=== PATIENT | male | born 1955 | race Hispanic/Latino ===

== ENCOUNTER 2017-06-08 09:23 | Emergency (ER) | payer SELFPAY ==
[2017-06-08] MEDS ORDERED: SULFAMETHOX-TMP DS 800/160 TAB ONE (10:34)
[2017-06-08] MEDS ORDERED: CEPHALEXIN 500 MG CAPSULE ONE (10:34)
== END 2017-06-08 10:58 | disposition home or self-care (01) ==
LOC: EDH 09:23
DX: L03.031 Cellulitis of right toe (principal); I10 Essential (primary) hypertension; E11.9 Type 2 diabetes mellitus without complications; E78.00 Pure hypercholesterolemia, unspecified

== ENCOUNTER 2017-07-04 14:45 | Inpatient (IN) | payer OTHER ==
[~2017-07-04] VITALS: Ht 162.6 cm; Wt 103.2 kg
[2017-07-04 15:42] LABS: BASOPHILS % (AUTO) 0.7 % (0.0-5.0); EOSINOPHILS % (AUTO) 2.9 % (0.0-8.0); HEMATOCRIT 39.1 % (42-54); LYMPHOCYTES % (AUTO) 21.5 % (21.0-51.0); MEAN CORPUSCULAR HEMOGLOBIN 33.2 pg (27.0-33.0); MEAN CORPUSCULAR HGB CONC 35.6 g/dL (32.0-36.0); MEAN CORPUSCULAR VOLUME 93.4 fL (79-99); MONOCYTES % (AUTO) 9.8 % (3.0-13.0); NEUTROPHILS % (AUTO) 65.1 % (40.0-77.0); NUCLEATED RED BLOOD CELLS 0.1 % (0.0-0.19); PLATELET COUNT (AUTO) 254 K/uL (130-400); RED BLOOD CELL COUNT(AUTO) 4.19 MIL/uL (4.50-6.20); RED CELL DISTRIBUTION WIDTH 13.2 % (11.0-15.5); WHITE BLOOD COUNT (AUTO) 7.5 K/uL (4.8-10.8)
[2017-07-04 15:50] LABS: CREATININE 1.3 mg/dL (0.5-1.5); POTASSIUM 4.6 mmol/L (3.5-5.1)
[2017-07-04 15:54] LABS: ALBUMIN 3.4 g/dL (3.5-5.0); BILIRUBIN,TOTAL 0.3 mg/dL (0.2-1.0); TOTAL PROTEIN, SERUM 7.5 g/dL (6.0-8.3)
[2017-07-04] MEDS ORDERED: ZOSYN 3.375GM+NS 50ML 50 ML IV SCH (16:45)
[2017-07-04 16:50] LABS: ERYTHROCYTE SEDIMENTATION RATE 38 MM/HR (0-15)
[2017-07-04] MEDS ORDERED: ZOSYN 3.375GM+NS 50ML 50 ML IV ONE (17:24)
[2017-07-04] MEDS ORDERED: ASPIRIN 325 MG TABLET ONE (18:36)
[2017-07-04] MEDS ORDERED: VANCOMYCIN 1GM+NS 250ML 250 ML IV ONE (18:36)
[2017-07-05 00:25] VITALS: BP 134/69
[2017-07-05] MEDS ORDERED: GLIP5TAB11 PO (01:29)
[2017-07-05] MEDS ORDERED: CLOP75TA32 PO (01:29)
[2017-07-05] MEDS ORDERED: PRAV40TA3 PO (01:29)
[2017-07-05] MEDS ORDERED: MUPI22O TP (01:29)
[2017-07-05] MEDS ORDERED: LISI-613 PO (01:29)
[2017-07-05] MEDS ORDERED: GLUCAGON 1MG KIT 1 MG ML IM PRN (02:00)
[2017-07-05] MEDS ORDERED: DIPHENHYDRAMINE HCL 25 MG CAPSULE PO PRN (02:00)
[2017-07-05] MEDS ORDERED: VANCOMYCIN PROTOCOL PER PHARMACY IV SCH (02:00)
[2017-07-05] MEDS ORDERED: GUAIFENESIN-DM 200/20 MG 10 ML PO PRN (02:00)
[2017-07-05] MEDS ORDERED: LACTULOSE 20 GM/30 ML UDCUP PO PRN (02:00)
[2017-07-05] MEDS ORDERED: DEXTROSE 50%-WATER 50 ML DISP.SYRIN IV PRN (02:00)
[2017-07-05] MEDS ORDERED: MAG HYDROX/AL HYDROX/SIMETH ES 30 ML SUSP UDCUP PO PRN (02:00)
[2017-07-05] MEDS ORDERED: CLONIDINE HCL 0.1 MG TABLET PO PRN (02:00)
[2017-07-05] MEDS ORDERED: ACETAMINOPHEN 325 MG TAB PO PRN (02:00)
[2017-07-05] MEDS ORDERED: ZOLPIDEM TARTRATE 5 MG TAB PO PRN (02:00)
[2017-07-05] MEDS ORDERED: ONDANSETRON HCL 4 MG/2 ML VIAL IVP PRN (02:00)
[2017-07-05] MEDS: ZOSYN 3.375GM+NS 50ML 50 ML IV SCH ×3 (02:34→20:37)
[2017-07-05 04:12] VITALS: BP 119/64
[2017-07-05 05:56] LABS: BASOPHILS % (AUTO) 0.8 % (0.0-5.0); EOSINOPHILS % (AUTO) 3.2 % (0.0-8.0); HEMATOCRIT 39.8 % (42-54); LYMPHOCYTES % (AUTO) 20.7 % (21.0-51.0); MEAN CORPUSCULAR HEMOGLOBIN 32.7 pg (27.0-33.0); MEAN CORPUSCULAR HGB CONC 34.6 g/dL (32.0-36.0); MEAN CORPUSCULAR VOLUME 94.5 fL (79-99); MONOCYTES % (AUTO) 10.6 % (3.0-13.0); NEUTROPHILS % (AUTO) 64.7 % (40.0-77.0); PLATELET COUNT (AUTO) 208 K/uL (130-400); RED BLOOD CELL COUNT(AUTO) 4.22 MIL/uL (4.50-6.20); RED CELL DISTRIBUTION WIDTH 13.1 % (11.0-15.5); WHITE BLOOD COUNT (AUTO) 7.8 K/uL (4.8-10.8)
[2017-07-05 06:22] LABS: ALBUMIN 3.2 g/dL (3.5-5.0); BILIRUBIN,TOTAL 0.5 mg/dL (0.2-1.0); POTASSIUM 4.3 mmol/L (3.5-5.1); TOTAL PROTEIN, SERUM 6.9 g/dL (6.0-8.3)
[2017-07-05] MEDS ORDERED: COMPOUND IV REFRIGERATED 1 EACH IVSOLN MISC PRN (06:30)
[2017-07-05] MEDS: INSULIN R PO SS1 SQ SCH ×4 (06:36→20:57)
[2017-07-05] MEDS: FAMOTIDINE 20MG TAB 20 MG TAB PO SCH ×2 (08:43→20:37)
[2017-07-05] MEDS: ASPIRIN 325MG EC TAB 325 MG TABLET.DR PO SCH (08:43)
[2017-07-05] MEDS: VANCOMYCIN 1.5 GM in SODIUM CHLORIDE 0.9% 250 ML IV SCH ×2 (08:45→22:49)
[2017-07-05 09:34] VITALS: BP 108/56
[2017-07-05 12:17] VITALS: BP 128/66
[2017-07-05 16:00] VITALS: BP 115/72
[2017-07-05 20:00] VITALS: BP 122/60
[2017-07-06] VITALS (7 sets, daily range): BP systolic 109–126; BP diastolic 64–84
[2017-07-06] MEDS: ZOSYN 3.375GM+NS 50ML 50 ML IV SCH ×3 (03:51→18:44)
[2017-07-06] MEDS: INSULIN R PO SS1 SQ SCH ×4 (06:12→21:00)
[2017-07-06] MEDS: FAMOTIDINE 20MG TAB 20 MG TAB PO SCH ×2 (10:12→20:45)
[2017-07-06] MEDS: VANCOMYCIN 1.5 GM in SODIUM CHLORIDE 0.9% 250 ML IV SCH ×2 (10:12→22:40)
[2017-07-06] MEDS: ASPIRIN 325MG EC TAB 325 MG TABLET.DR PO SCH (10:12)
[2017-07-07] VITALS (23 sets, daily range): BP systolic 103–135; BP diastolic 53–83
[2017-07-07] MEDS: ZOSYN 3.375GM+NS 50ML 50 ML IV SCH ×3 (02:23→17:42)
[2017-07-07 05:49] LABS: HEMATOCRIT 39.2 % (42-54); MEAN CORPUSCULAR HEMOGLOBIN 33.2 pg (27.0-33.0); MEAN CORPUSCULAR HGB CONC 35.6 g/dL (32.0-36.0); MEAN CORPUSCULAR VOLUME 93.4 fL (79-99); NUCLEATED RED BLOOD CELLS 0.1 % (0.0-0.19); PLATELET COUNT (AUTO) 215 K/uL (130-400); RED CELL DISTRIBUTION WIDTH 13.3 % (11.0-15.5); WHITE BLOOD COUNT (AUTO) 7.4 K/uL (4.8-10.8)
[2017-07-07 05:57] LABS: INR 1.07 (0.85-1.15); PARTIAL THROMBOPLASTIN TIME 25.4 SEC (26.3-35.5); PROTHROMBIN TIME 11.2 SEC (9.6-11.6)
[2017-07-07 06:04] LABS: POTASSIUM 4.2 mmol/L (3.5-5.1)
[2017-07-07] MEDS: INSULIN R PO SS1 SQ SCH ×4 (06:05→21:29)
[2017-07-07] MEDS: VANCOMYCIN 1.5 GM in SODIUM CHLORIDE 0.9% 250 ML IV SCH ×2 (07:55→21:51)
[2017-07-07] MEDS ORDERED: ISOVUE-300 100 ML VIAL IV ONE (08:11)
[2017-07-07] MEDS ORDERED: HEPARIN SODIUM 1000UNIT/ML 10ML VIAL ONE ×2 (08:11→13:15)
[2017-07-07] MEDS ORDERED: NITROGLYCERIN 5 MG/ML 10 ML VIAL IV ONE (08:11)
[2017-07-07] MEDS ORDERED: LIDOCAINE HCL 2% 20ML ONE (08:11)
[2017-07-07] MEDS: FAMOTIDINE 20MG TAB 20 MG TAB PO SCH ×2 (09:00→21:32)
[2017-07-07] MEDS: ASPIRIN 325MG EC TAB 325 MG TABLET.DR PO SCH (09:00)
[2017-07-07] MEDS ORDERED: SODIUM CHLORIDE 0.9% 1000ML 1,000 ML IV SCH (09:55)
[2017-07-07] MEDS ORDERED: DEXTROSE 50%-WATER 50 ML DISP.SYRIN IV PRN (10:00)
[2017-07-07] MEDS ORDERED: GLUCAGON 1MG KIT 1 MG ML IM PRN (10:00)
[2017-07-07] MEDS ORDERED: CEFUROXIME 1.5GM+NS 100ML 100 ML IV SCH (10:15)
[2017-07-07] MEDS ORDERED: CEFUROXIME SODIUM 1.5 GM VIAL IVP SCH (10:45)
[2017-07-07 11:15] LABS: BASOPHILS % (AUTO) 0.6 % (0.0-5.0); EOSINOPHILS % (AUTO) 1.7 % (0.0-8.0); HEMATOCRIT 39.7 % (42-54); LYMPHOCYTES % (AUTO) 16.1 % (21.0-51.0); MEAN CORPUSCULAR HEMOGLOBIN 32.9 pg (27.0-33.0); MEAN CORPUSCULAR HGB CONC 34.9 g/dL (32.0-36.0); MEAN CORPUSCULAR VOLUME 94.4 fL (79-99); NEUTROPHILS % (AUTO) 71.6 % (40.0-77.0); PLATELET COUNT (AUTO) 193 K/uL (130-400); RED CELL DISTRIBUTION WIDTH 13.1 % (11.0-15.5)
[2017-07-07 11:32] LABS: INR 1.08 (0.85-1.15); PARTIAL THROMBOPLASTIN TIME 25.2 SEC (26.3-35.5); PROTHROMBIN TIME 11.3 SEC (9.6-11.6)
[2017-07-07 12:17] LABS: POTASSIUM 4.6 mmol/L (3.5-5.1)
[2017-07-07] MEDS: SODIUM CHLORIDE 0.9% 1000ML 1,000 ML IV SCH ×2 (12:42→15:00)
[2017-07-07] MEDS ORDERED: PROPOFOL 1000 MG/100 ML 0 ML IV ONE ×2 (12:47→12:48)
[2017-07-07] MEDS ORDERED: MIDAZOLAM HCL 1 MG/ML 2ML VIAL ONE (12:47)
[2017-07-07] MEDS ORDERED: LIDOCAINE HCL 1% 10 ML VIAL ONE (12:47)
[2017-07-07] MEDS ORDERED: FENTANYL CITRATE PF 50 MCG/1 ML 2ML VIAL ONE (12:47)
[2017-07-07] MEDS ORDERED: PROPOFOL 10 MG/ML 20ML VIAL IV ONE (12:49)
[2017-07-07] MEDS ORDERED: THROMBIN-JMI 5000 UNIT/VIAL TP ONE (12:52)
[2017-07-07] MEDS ORDERED: OCTYL 2-CYANOACRYLATE 1 EACH TP ONE (13:15)
[2017-07-07] MEDS ORDERED: BACITRACIN 50,000 UNIT VIAL ONE (13:15)
[2017-07-07] MEDS ORDERED: ACETAMINOPHEN 325 MG TAB PO PRN (14:30)
[2017-07-07] MEDS ORDERED: TRAMADOL HCL 50 MG TABLET PO PRN (14:30)
[2017-07-07] MEDS ORDERED: DEXTROSE 5 %-0.45 % NACL 1,000 ML IV SCH (14:30)
[2017-07-07] MEDS ORDERED: MAGNESIUM HYDROXIDE 30 ML/UDCUP PO PRN (14:30)
[2017-07-07] MEDS ORDERED: NEOSTIGMINE 5MG/5ML SYR IV ONE (14:53)
[2017-07-07] MEDS ORDERED: GLYCOPYRROLATE 0.2 MG/ML 5 ML VIAL ONE (14:53)
[2017-07-07] MEDS: HYDROCODONE/ACETAMINOPHEN 5/325 MG TAB PO PRN (17:42)
[2017-07-08] VITALS (15 sets, daily range): BP systolic 101–127; BP diastolic 35–64
[2017-07-08] MEDS: HYDROCODONE/ACETAMINOPHEN 5/325 MG TAB PO PRN (02:25)
[2017-07-08] MEDS: ZOSYN 3.375GM+NS 50ML 50 ML IV SCH ×3 (02:25→18:26)
[2017-07-08 04:13] LABS: ALBUMIN 2.9 g/dL (3.5-5.0); BILIRUBIN,TOTAL 0.5 mg/dL (0.2-1.0); CREATININE 1.1 mg/dL (0.5-1.5); POTASSIUM 4.5 mmol/L (3.5-5.1); TOTAL PROTEIN, SERUM 6.4 g/dL (6.0-8.3)
[2017-07-08] MEDS: INSULIN R PO SS1 SQ SCH ×5 (06:19→20:51)
[2017-07-08] MEDS: FAMOTIDINE 20MG TAB 20 MG TAB PO SCH ×2 (10:05→20:51)
[2017-07-08] MEDS: ASPIRIN 325MG EC TAB 325 MG TABLET.DR PO SCH (10:05)
[2017-07-08] MEDS: VANCOMYCIN 1.5 GM in SODIUM CHLORIDE 0.9% 250 ML IV SCH ×2 (11:56→20:51)
[2017-07-08] MEDS ORDERED: LIDOCAINE HCL 1% 20 ML VIAL ONE (21:18)
[2017-07-08] MEDS ORDERED: BUPIVACAINE/PF 0.5% 30ML VIAL ONE (21:18)
[2017-07-08] MEDS ORDERED: MIDAZOLAM HCL 1 MG/ML 2ML VIAL ONE (21:35)
[2017-07-08] MEDS ORDERED: PROPOFOL 10 MG/ML 20ML VIAL IV ONE (21:36)
[2017-07-08] MEDS ORDERED: FENTANYL CITRATE PF 50 MCG/1 ML 2ML VIAL ONE (21:36)
[2017-07-09] VITALS (12 sets, daily range): BP systolic 95–129; BP diastolic 37–65
[2017-07-09] MEDS: ZOSYN 3.375GM+NS 50ML 50 ML IV SCH ×3 (02:28→18:01)
[2017-07-09] MEDS ORDERED: MORPHINE SULFATE 2 MG/ML 1ML SYG IVP PRN (04:00)
[2017-07-09] MEDS ORDERED: ONDANSETRON HCL MDV 20ML 2 MG/ML VIAL IVP PRN (04:00)
[2017-07-09] MEDS: INSULIN R PO SS1 SQ SCH ×4 (06:03→20:38)
[2017-07-09] MEDS: FAMOTIDINE 20MG TAB 20 MG TAB PO SCH ×2 (09:51→20:39)
[2017-07-09] MEDS: ASPIRIN 325MG EC TAB 325 MG TABLET.DR PO SCH (09:51)
[2017-07-09] MEDS: VANCOMYCIN 1.5 GM in SODIUM CHLORIDE 0.9% 250 ML IV SCH ×2 (10:14→20:40)
[2017-07-09] MEDS: FUROSEMIDE 20 MG TABLET PO SCH (13:35)
[2017-07-09] MEDS: HYDROCODONE/ACETAMINOPHEN 5/325 MG TAB PO PRN ×2 (13:42→20:39)
[2017-07-10] MEDS: ZOSYN 3.375GM+NS 50ML 50 ML IV SCH ×2 (02:08→09:53)
[2017-07-10 03:22] VITALS: BP 117/56
[2017-07-10] MEDS: INSULIN R PO SS1 SQ SCH ×4 (05:31→21:32)
[2017-07-10] MEDS: HYDROCODONE/ACETAMINOPHEN 5/325 MG TAB PO PRN ×3 (05:56→18:20)
[2017-07-10 07:11] VITALS: BP 118/57
[2017-07-10] MEDS: FAMOTIDINE 20MG TAB 20 MG TAB PO SCH ×2 (07:35→21:33)
[2017-07-10] MEDS: ASPIRIN 325MG EC TAB 325 MG TABLET.DR PO SCH (07:35)
[2017-07-10] MEDS: FUROSEMIDE 20 MG TABLET PO SCH (07:36)
[2017-07-10] MEDS: VANCOMYCIN 1.5 GM in SODIUM CHLORIDE 0.9% 250 ML IV SCH (07:36)
[2017-07-10 11:19] VITALS: BP 111/64
[2017-07-10 16:19] VITALS: BP 99/59
[2017-07-10 19:04] VITALS: BP 105/68
[2017-07-10 23:11] VITALS: BP 97/58
[2017-07-11 03:24] VITALS: BP 111/62
[2017-07-11] MEDS: HYDROCODONE/ACETAMINOPHEN 5/325 MG TAB PO PRN ×3 (05:24→22:06)
[2017-07-11] MEDS: INSULIN R PO SS1 SQ SCH ×4 (06:20→21:00)
[2017-07-11 07:44] VITALS: BP 105/64
[2017-07-11] MEDS: ASPIRIN 325MG EC TAB 325 MG TABLET.DR PO SCH (09:55)
[2017-07-11] MEDS: FAMOTIDINE 20MG TAB 20 MG TAB PO SCH ×2 (09:55→20:21)
[2017-07-11] MEDS: FUROSEMIDE 20 MG TABLET PO SCH (09:55)
[2017-07-11 10:58] VITALS: BP 111/67
[2017-07-11 16:18] VITALS: BP 115/44
[2017-07-11 19:35] VITALS: BP 122/62
[2017-07-11] MEDS ORDERED: ATORVASTATIN CALCIUM 40 MG TABLET PO SCH (21:00)
[2017-07-11 23:22] VITALS: BP 123/64
[2017-07-12 03:35] VITALS: BP 129/69
[2017-07-12] MEDS: INSULIN R PO SS1 SQ SCH ×2 (05:37→11:24)
[2017-07-12 07:37] VITALS: BP 106/58
[2017-07-12] MEDS: FAMOTIDINE 20MG TAB 20 MG TAB PO SCH (09:42)
[2017-07-12] MEDS: ASPIRIN 325MG EC TAB 325 MG TABLET.DR PO SCH (09:42)
[2017-07-12] MEDS: FUROSEMIDE 20 MG TABLET PO SCH (09:42)
[2017-07-12 11:18] VITALS: BP 118/72
== END 2017-07-12 14:00 | disposition home or self-care (01) | DRG 240 ==
LOC: EDH 14:45 → EDHIP 14:46 → 4CH 21:51 → 2DH 07-07 16:38
PROVIDERS: ADMIT Internal Medicine; ATTEND Internal Medicine
PROC: B41D1ZZ Fluoroscopy of Aorta and Bilateral Lower Extremity Arteries using Low Osmolar Contrast (ICD-10-PCS; 2017-07-07)
PROC: 041K09Q Bypass Right Femoral Artery to Lower Extremity Artery with Autologous Venous Tissue, Open Approach (ICD-10-PCS; 2017-07-08)
PROC: 0Y6M0Z9 Detachment at Right Foot, Partial 1st Ray, Open Approach (ICD-10-PCS; principal; 2017-07-08 21:53)
DX: I70.211 Atherosclerosis of native arteries of extremities with intermittent claudication, right leg (principal); M86.10 Other acute osteomyelitis, unspecified site; E11.621 Type 2 diabetes mellitus with foot ulcer; E11.51 Type 2 diabetes mellitus with diabetic peripheral angiopathy without gangrene; L03.115 Cellulitis of right lower limb; E11.69 Type 2 diabetes mellitus with other specified complication; E66.9 Obesity, unspecified; E78.5 Hyperlipidemia, unspecified; I70.8 Atherosclerosis of other arteries; F17.200 Nicotine dependence, unspecified, uncomplicated; I10 Essential (primary) hypertension; I70.201 Unspecified atherosclerosis of native arteries of extremities, right leg; J44.9 Chronic obstructive pulmonary disease, unspecified; L03.031 Cellulitis of right toe; L97.519 Non-pressure chronic ulcer of other part of right foot with unspecified severity; Z68.39 Body mass index [BMI] 39.0-39.9, adult; Z83.3 Family history of diabetes mellitus; Z82.49 Family history of ischemic heart disease and other diseases of the circulatory system; Z80.0 Family history of malignant neoplasm of digestive organs
CPT/HCPCS: 36246; 36415; 73630; 73718; 75630; 80048; 80053; 80202; 82948; 85025; 85027; 85610; 85651; 85730; 86850; 86900; 86901; 86922; 87070; 87076; 87106; 87205; 88304; 88305; 88311; 93306; 93925; 97039; A4344; C1769; C1894; J1644; J1815; J2250; J2543; J2704; J2710; J3010; J3370; J3490; J7030; J7040; Q9967

== ENCOUNTER 2022-10-28 14:01 | Emergency (ER) | payer OTHER ==
[~2022-10-28] VITALS: Ht 162.6 cm; Wt 106.1 kg
[~2022-10-28 14:01] MED LIST: CLOP75TA32 PO; FURO20TA4 PO; GLIM4TAB36 PO; MELO-108 PO; METF-444 PO; ROSU20TA73 PO; SITA100T12 PO
[2022-10-28 15:04] VITALS: BP 167/89; PULSE 102; RESP 18
[2022-10-28 16:37] LABS: BASOPHILS # (AUTO) 0.03 K/uL (0.00-0.20); BASOPHILS % (AUTO) 0.4 % (0.0-5.0); EOSINOPHILS # (AUTO) 0.08 K/uL (0.00-0.70); IMMATURE GRANULOCYTE ABSOLUTE 0.03 K/uL (0-1); LYMPHOCYTES # (AUTO) 0.6 K/uL (1.0-4.8); LYMPHOCYTES % (AUTO) 7.5 % (21.0-51.0); MEAN CORPUSCULAR HEMOGLOBIN 31.6 pg (27.0-33.0); MEAN CORPUSCULAR HGB CONC 34.1 g/dL (32.0-36.0); MEAN CORPUSCULAR VOLUME 92.7 fL (79-99); MONOCYTES # (AUTO) 0.6 K/uL (0.1-1.0); MONOCYTES % (AUTO) 8.1 % (3.0-13.0); NEUTROPHILS # (AUTO) 6.6 K/uL (1.8-7.7); NEUTROPHILS % (AUTO) 82.6 % (40.0-77.0); PLATELET COUNT (AUTO) 112 K/uL (130-400); RED BLOOD CELL COUNT(AUTO) 3.99 MIL/uL (4.50-6.20)
[2022-10-28 16:51] LABS: CREATININE 1.2 mg/dL (0.5-1.5); POTASSIUM 3.7 mmol/L (3.5-5.1)
[2022-10-28 16:56] LABS: ALBUMIN 3.2 g/dL (3.5-5.0); BILIRUBIN,TOTAL 0.7 mg/dL (0.2-1.0); TOTAL PROTEIN, SERUM 7.1 g/dL (6.0-8.3)
[2022-10-28] MEDS ORDERED: DOCU-133 PO (17:04)
[2022-10-28 18:07] LABS: ADD UA MICROSCOPIC YES; APPEARANCE,URINE CLOUDY (CLEAR); BILIRUBIN,URINE NEGATIVE (NEGATIVE); COLOR,URINE LIGHT-YELLOW (YELLOW); GLUCOSE, URINE (UA) 200 mg/dL (NEGATIVE); KETONES,URINE NEGATIVE (NEGATIVE); LEUKOCYTE ESTERASE ,URINE NEGATIVE Leu/uL (NEGATIVE); NITRATE,URINE NEGATIVE (NEGATIVE); OCCULT BLOOD,URINE NEGATIVE (NEGATIVE); PH,URINE 6.5 (5.0-8.0); PROTEIN,URINE NEGATIVE (NEGATIVE); UROBILINOGEN,URINE 0.2 mg/dL (0.2-1.0)
[2022-10-28 18:12] LABS: BACTERIA,URINE FEW /HPF (None Seen); CALCIUM OXALATE CRYSTALS,UR RARE /LPF (None Seen); MUCUS,URINE RARE LPF (None Seen); OTHER CASTS, URINE 1 /LPF (None Seen); SQUAMOUS EPITHELIAL CELL,UR RARE /HPF (0-2); UNCLASSIFIED CRYSTAL 3 /HPF (None Seen); YEAST,URINE BUDDING FEW /HPF (None Seen)
== END 2022-10-28 20:56 | disposition home or self-care (01) ==
LOC: EDH 14:01
DX: K59.00 Constipation, unspecified (principal); E11.9 Type 2 diabetes mellitus without complications; Z79.899 Other long term (current) drug therapy; Z79.84 Long term (current) use of oral hypoglycemic drugs; Z98.890 Other specified postprocedural states
CPT/HCPCS: 36415; 74021; 80053; 81001; 83690; 85025; 87077; 87088; 87186

== ENCOUNTER → 2022-11-17 | Outpatient (CLI) | payer OTHER ==
[~2022-11-17] MED LIST changes: +DOCU-133 PO; +IOHEXOL 350 MG/ML 100ML INFUS..BTL IV ONE; +METOPROLOL TARTRATE 1 MG/ML 5ML VIAL IV ONE
== END | disposition home or self-care (01) ==
LOC: RAH 08:53
PROVIDERS: ATTEND Student in an Organized Health Care Education/Training Program
DX: R07.9 Chest pain, unspecified (principal)
CPT/HCPCS: 75574; J3490 ×2; Q9967 ×2